=== PATIENT | female | born 1995 | race Caucasian/White ===

== ENCOUNTER 2020-10-25 10:14 | Emergency (ER) | payer OTHER ==
[~2020-10-25] VITALS: Ht 165.1 cm; Wt 104.5 kg
[2020-10-25 10:37] VITALS: BP 119/95
== END 2020-10-25 13:57 | disposition home or self-care (01) ==
LOC: EMS 10:16
DX: O9A.212 Injury, poisoning and certain other consequences of external causes complicating pregnancy, second trimester (principal); Z3A.16 16 weeks gestation of pregnancy; V49.9XXA Car occupant (driver) (passenger) injured in unspecified traffic accident, initial encounter; Y93.89 Activity, other specified; Y92.488 Other paved roadways as the place of occurrence of the external cause; Y99.8 Other external cause status
CPT/HCPCS: 76805; 99284; Z7502